=== PATIENT | female | born 1945 | race Two or more races ===

== ENCOUNTER 2022-07-02 06:30 | Day surgery (SDC) | payer OTHER ==
[~2022-07-02] VITALS: Ht 162.6 cm; Wt 83.9 kg
[~2022-07-02 06:30] MED LIST: COZAAR25 MG PO; LEVO-T25 MCG PO
== END 2022-07-02 14:20 | disposition home or self-care (01) ==
LOC: CIR.AMB 06:30
PROVIDERS: ATTEND Surgery
DX: D48.62 Neoplasm of uncertain behavior of left breast (principal); N60.82 Other benign mammary dysplasias of left breast; R92.1 Mammographic calcification found on diagnostic imaging of breast; N62 Hypertrophy of breast; I10 Essential (primary) hypertension; Z20.822 Contact with and (suspected) exposure to COVID-19; E78.2 Mixed hyperlipidemia; D64.9 Anemia, unspecified